=== PATIENT | male | born 1985 | race Caucasian/White ===

== ENCOUNTER 2022-09-02 09:10 | Outpatient (CLI) | payer BC, SELFPAY ==
[2022-09-02 13:20] LABS: Epithelial Count Semen Rare /hpf; PH Semen 8.5 (7.0-8.0); Pathology Referral Yes; Red Blood Count Semen Rare /hpf; Sperm Count 20.3 mill/mL (40-160); Sperm Immotility 50 % (50-60); Sperm Non-Progressive Motility 10 % (5-10); Sperm Progressive Motility 40 % (31-34); Viscosity Semen Normal
== END 2022-09-02 09:11 | disposition home or self-care (01) ==
PROVIDERS: PCP Family Medicine; Visit Provider Family Medicine
DX: N46.9 Male infertility, unspecified (principal)
CPT/HCPCS: 80503; 89320